=== PATIENT | male | born 1975 | race African-American/Black ===

== ENCOUNTER 2022-05-31 08:53 | Emergency (ER) | payer SELFPAY ==
[2022-05-31 09:25] LABS: #Basophils 0.1 10x3/uL (0.0-0.2); #Eosinphils 0.1 10x3/uL (0.0-0.5); #Monocytes 1.2 10x3/uL (0.0-1.1); #Neutrophils 14.1 10x3/uL (1.5-8.4); %Basophils 0.3 % (0.0-2.0); %Eosinophils 0.7 % (0.0-6.0); %Monocytes 7.1 % (0.0-10.0); %Neutrophils 81.6 % (40.0-75.0); Hemoglobin 15.4 g/dL (13.5-17.5); Mean Corpuscular HGB CONC 34.5 g/dL (32.0-36.0); Mean Corpuscular Hemoglobin 31.5 pg (27.0-33.0); Mean Corpuscular Volume 91.4 fl (81.2-95.1); Mean Platelet Volume 9.4 fl (7.4-10.4); Platelet Count 335 10x3/uL (150-450); RBC Distribution Width 13.2 % (11.5-14.5); Red Blood Cell (RBC) Count 4.89 10x6/uL (4.32-5.72); White Blood Cell (WBC) Count 17.3 10x3/uL (3.5-10.5)
[2022-05-31 09:39] LABS: ALT (SGPT) 12 U/L (8-55); AST (SGOT) 17 U/L (5-34); Albumin 3.9 g/dL (3.5-5.0); Alkaline Phosphatase 59 U/L (40-110); Anion Gap 13 mmol/L (10-20); BUN (Urea Nitrogen) 10 mg/dL (8.9-20.6); Bilirubin, Total 0.9 mg/dL (0.2-1.2); Calc. Creatinine Clearance 0 mL/min (70-130); Calcium 9.4 mg/dL (7.8-10.44); Carbon Dioxide 24 mmol/L (22-29); Chloride 103 mmol/L (98-107); Estimated GFR 105; Globulin 2.9 g/dL (2.4-3.5); Glucose 104 mg/dL (70-105); Lipase 14 U/L (8-78); Potassium 3.9 mmol/L (3.5-5.1); Protein, Total 6.8 g/dL (6.0-8.3); Sodium 136 mmol/L (136-145)
[2022-05-31 09:57] LABS: Acetaminophen Less than 10.0 mcg/mL (10.0-30.0); Alcohol Less than 10 mg/dL (Less than 10); Salicylate Less than 8.0 mg/dL (15.0-30.0)
[2022-05-31 10:38] LABS: SARS-CoV-2 NAA Rapid Test Not Detected (NotDetected)
[2022-05-31] MEDS ORDERED: Ketorolac Tromethamine 30 MG/ML VIAL ONE (12:10)
[2022-05-31] MEDS ORDERED: diphenhydrAMINE 50 MG/ML VIAL ONE (13:34)
[2022-05-31] MEDS ORDERED: Metoclopramide HCl 10 MG/2 ML VIAL ONE (13:34)
== END 2022-05-31 14:57 | disposition home or self-care (01) ==
LOC: CSHERS 08:53
DX: R51.9 Headache, unspecified (principal); R07.89 Other chest pain; Z20.822 Contact with and (suspected) exposure to COVID-19; F17.210 Nicotine dependence, cigarettes, uncomplicated
CPT/HCPCS: 36415; 70450; 71045; 80053; 80307; 83690; 84484; 85025; 93005; 96365; 96375; J1200; J1885; J2765

== ENCOUNTER 2023-04-11 18:20 | Emergency (ER) | payer SELFPAY ==
[2023-04-11] MEDS ORDERED: Ketorolac Tromethamine 30 MG/ML VIAL ONE (18:56)
[2023-04-11] MEDS ORDERED: Cyclobenzaprine 10 MG TAB ONE ×2 (18:57→19:06)
[2023-04-11] MEDS ORDERED: predniSONE 20 MG TAB ONE ×2 (18:57→19:07)
== END 2023-04-11 19:33 | disposition home or self-care (01) ==
LOC: CSHERS 18:20
DX: M54.2 Cervicalgia (principal); G89.29 Other chronic pain; I10 Essential (primary) hypertension
CPT/HCPCS: 96372; 99283; J1885; J7512

== ENCOUNTER 2023-04-14 03:53 | Emergency (ER) | payer SELFPAY | END 2023-04-14 04:45 | disposition home or self-care (01) | LOC: CSHERS 03:53 | DX: T18.9XXA Foreign body of alimentary tract, part unspecified, initial encounter (principal); S80.02XA Contusion of left knee, initial encounter; I10 Essential (primary) hypertension; F17.210 Nicotine dependence, cigarettes, uncomplicated; X58.XXXA Exposure to other specified factors, initial encounter | CPT/HCPCS: 71045; 74018 ==